=== PATIENT | male | born 1995 | race Caucasian/White ===

== ENCOUNTER 2016-10-15 09:29 | Emergency (ER) | payer MEDICAID, OTHER ==
[~2016-10-15] VITALS: Ht 172.7 cm; Wt 81.0 kg
[2016-10-15 09:40] VITALS: Ht 172.7 cm; Wt 81.0 kg
--- NOTE | 2016-10-15 10:24 | ERD ---
ER Documentation Chief Complaint Date/Time DATE: 10/15/16 Chief Complaint Rectal bleeding HPI The patient is a 21-year-old male who presents the Emergency Department with complaint of rectal bleeding. The patient reports that over the past month he has been experiencing painless rectal bleeding. He notes presence of bright red blood per rectum during bowel movements. His symptoms were initially intermittent, and mild, only noted on the toilet paper, but are now occurring with almost every bowel movement. The patient reports some intermittent associated pruritus ani and "pulsating" lower abdominal discomfort, but denies any pain or discomfort at this time. He denies any hematemesis or coffee- ground emesis. Denies any black tarry stools last melena. Denies any weakness or lightheadedness. Any chest pain, palpitations or shortness of breath. Denies confusion or agitation. Denies fevers or chills. Denies diarrhea. Denies any history of coagulopathy. Denies family history of neoplastic disease. The patient notes that after initial onset of symptoms he assumed that this symptoms were related to his heavy alcohol usage, as he drinks 6-12 beers daily , often accompanied by Lola. However, after attempting to reduce his alcohol use his symptoms persisted, and therefore he decided to present to the ED for evaluation. Denies any anticoagulant use, or any comorbid conditions. ROS All systems reviewed and are negative except as per history of present illness. Medications Home Meds Active Scripts Hydrocortisone Acetate (Anusol-Hc) 25 Mg Supp.rect, 25 MG [place] BID Y for hemorrhoids for 7 Days, SUPP.RECT Prov:SANDRA ORTIZ PA-C 10/15/16 Allergies Allergies: Coded Allergies: No Known Allergy (Unverified , 10/15/16) PMhx/Soc Medical and Surgical Hx: pt denies Medical Hx History of Surgery: Yes (right elbow reconstructive ) Anesthesia Reaction: No Hx Neurological Disorder: No Hx Respiratory Disorders: No Hx Cardiac Disorders: No Hx Psychiatric Problems: No Hx Miscellaneous Medical Probl: No Hx Alcohol Use: Yes Hx Substance Use: Yes (marijuana) Hx Tobacco Use: No Smoking Status: Unknown if ever smoked Physical Exam Vitals Vital Signs Date Time Temp Pulse Resp B/P Pulse Ox O2 Delivery O2 Flow Rate FiO2 10/15/16 11:47 98.2 77 16 115/56 96 Room Air 3/3/17 09:40 98.2 56 16 116/56 96 Physical Exam GENERAL: Well-developed, well-nourished, male, in no acute distress and nontoxic. Well-appearing. HEENT: Head is normocephalic, atraumatic. No scleral pallor or icterus. Pupils equal, round and reactive to light. Extraocular movements intact. Conjunctiva pink. Moist mucous membranes. NECK: Supple. No masses, no tenderness, no lymphadenopathy. Full range of motion. RESPIRATORY: Lungs are clear to auscultation bilaterally. Equal breath sounds. Normal expiratory effort. CARDIOVASCULAR: Regular rate and rhythm. S1 and S2 normal. No tachycardia. No murmurs, rubs, or gallops. Distal pulses are palpable, 2+ bilaterally. Capillary refill is less than 2 seconds. GASTROINTESTINAL: Abdomen is soft, non-tender, and non-distended. No guarding, no rebound tenderness. Normal bowel sounds. No gross peritonitis. BACK: No midline tenderness. RECTAL EXAM: Normal tone, brown stool, heme/guaiac positive. Few hemorrhoids noted. No evidence of thrombosed or strangulated hemorrhoids. EXTREMITIES: No clubbing, cyanosis, or edema. Normal skin perfusion. Moving all extremities. Muscle tone is normal. No focal swelling or erythema. NEUROLOGIC: The patient is alert, awake, and oriented x 3. No focal neurologic deficits. Motor intact. INTEGUMENT: Skin is intact. Warm and dry. No rashes, no petechiae present. Normal turgor. PSYCHIATRIC: Cooperative; appropriate. Result Diagram: 10/15/16 1015 10/15/16 1015 Results 24 hrs Laboratory Tests Test 10/15/16 10:15 Alanine Aminotransferase (ALT/SGPT) 26IU/L Albumin 4.8g/dl Albumin/Globulin Ratio 1.23 Alkaline Phosphatase 68IU/L Anion Gap 18 Aspartate Amino Transf (AST/SGOT) 24IU/L Basophils # 0.010^3/ul Basophils % 0.7% Blood Urea Nitrogen 14mg/dl Calcium Level 10.0mg/dl Carbon Dioxide Level 30mmol/L Chloride Level 103mmol/L Creatinine 1.03mg/dl Direct Bilirubin 0.00mg/dl Eosinophils # 0.110^3/ul Eosinophils % 1.5% Globulin 3.90g/dl Glucose Level 67mg/dl Hematocrit 46.4% Hemoglobin 14.9g/dl Indirect Bilirubin 1.4mg/dl Lymphocytes # 1.710^3/ul Lymphocytes % 36.7% Mean Corpuscular Hemoglobin 26.5pg Mean Corpuscular Hemoglobin Concent 32.1g/dl Mean Corpuscular Volume 82.4fl Mean Platelet Volume 12.6fl Monocytes # 0.310^3/ul Monocytes % 7.1% Neutrophils # 2.410^3/ul Neutrophils % 53.8% Nucleated Red Blood Cells # 0.010^3/ul Nucleated Red Blood Cells % 0.0/100WBC Platelet Count 56769^3/UL Potassium Level 4.9mmol/L Red Blood Count 5.6310^6/ul Red Cell Distribution Width 13.4% Sodium Level 146mmol/L Total Bilirubin 1.4mg/dl Total Protein 8.7g/dl White Blood Count 4.510^3/ul Procedures/MDM This is a 21-year-old male presenting to the Emergency Department for evaluation of bright red-colored rectal bleeding over the past month. On physical examination, several hemorrhoids were noted. No current evidence of thrombosed external hemorrhoids, prolapsed or strangulated internal hemorrhoids. There is no clinical evidence of perirectal abscess, rectal prolapse, anal fissure, perirectal fistula, condyloma acuminata or presence of carcinoma. Laboratory analysis with no significant anemia. After rest, the patient reports no new complaints. Upon review and interpretation of the patient's presentation, I believe his symptoms are most consistent with rectal bleeding likely secondary to hemorrhoids. At this time, the patient is in stable condition and therefore can be discharged home with prescription for Anusol-HC and given strict return precautions for signs of deteriorating or worsening condition. He is advised to follow up with his primary medical provider within 2-3 days for re- evaluation and further management, or return to the ER sooner for any new or worsening symptoms. Additionally, if symptoms persist, he is recommended to follow up with GI specialist for colonoscopy, to rule out other sources of bleeding. I shared my medical decision making and plan with the patient at length and in great detail, and he verbally understands and agrees with the plan for further observation and care as an outpatient. At the time of discharge, all questions were answered. Departure Diagnosis: Primary Impression: Bleeding hemorrhoids Condition: Stable Patient Instructions: Hemorrhoids, Treating Hemorrhoids: Self-Care, Understanding Hemorrhoids Additional Instructions: Follow up with your primary medical provider in 2-3 days for reevaluation and further management. Return to the ED sooner for any new or worsening symptoms. You may need further evaluation by GI specialist if symptoms continue. SANDRA ORTIZ PA-C Oct 15, 2016 10:24
[2016-10-15 10:42] LABS: ADD SCAN DIFF NO
[2016-10-15 10:55] LABS: BASOPHILS % 0.7 % (0.0-2.0); EOSINOPHILS # 0.1 10^3/ul (0.0-0.5); EOSINOPHILS % 1.5 % (0.0-7.0); HEMATOCRIT 46.4 % (42.0-52.0); HEMOGLOBIN 14.9 g/dl (14.0-18.0); LYMPHOCYTES # 1.7 10^3/ul (0.8-2.9); LYMPHOCYTES % 36.7 % (15.0-51.0); MEAN CORPUSCULAR HEMOGLOBIN 26.5 pg (29.0-33.0); MEAN CORPUSCULAR HGB CONC 32.1 g/dl (32.0-37.0); MEAN CORPUSCULAR VOLUME 82.4 fl (82.0-101.0); MEAN PLATELET VOLUME 12.6 fl (7.4-10.4); MONOCYTE # 0.3 10^3/ul (0.3-0.9); MONOCYTES % 7.1 % (0.0-11.0); NEUTROPHIL # 2.4 10^3/ul (1.6-7.5); NEUTROPHILS % 53.8 % (39.0-77.0); PLATELET COUNT 134 10^3/UL (140-415); RED BLOOD COUNT 5.63 10^6/ul (4.70-6.10); RED CELL DISTRIBUTION WIDTH 13.4 % (11.5-14.5); WHITE BLOOD COUNT 4.5 10^3/ul (4.8-10.8)
[2016-10-15 11:14] LABS: ALBUMIN 4.8 g/dl (3.3-4.9); POTASSIUM 4.9 mmol/L (3.5-5.1)
[2016-10-15 11:16] LABS: BILIRUBIN,INDIRECT 1.4 mg/dl (0-1.1); BILIRUBIN,TOTAL 1.4 mg/dl (0.2-1.3); CREATININE 1.03 mg/dl (0.61-1.24)
[2016-10-15 11:17] LABS: ALBUMIN/GLOBULIN RATIO 1.23; TOTAL PROTEIN 8.7 g/dl (6.1-8.1)
[2016-10-15] MEDS ORDERED: HYDR25SU23 PR (11:32)
[2016-10-15 11:47] VITALS: BP 115/56; PULSE 77; RESP 16; TEMP 98.2
== END 2016-10-15 11:59 | disposition home or self-care (01) ==
LOC: FTE 09:29
DX: K64.9 Unspecified hemorrhoids (principal)
CPT/HCPCS: 36415; 80053; 85025; Z7502; 99284

== ENCOUNTER 2016-12-17 13:07 | Emergency (ER) | payer MEDICAID ==
[~2016-12-17] VITALS: Wt 80.0 kg
[~2016-12-17 13:07] MED LIST: HYDR25SU23 PR
--- NOTE | 2016-12-17 14:09 | ERD ---
ER Documentation Chief Complaint Date/Time DATE: 12/17/16 TIME: 14:07 Chief Complaint rectal pain for the past few months. hx of hemmroids . needs pmd HPI Patient is a 21-year-old male with hemorrhoids who presents with a hemorrhoid. The patient says that he has a history of hemorrhoids and was seen in the emergency department a few months ago for the same. He said that he was given a "cream" and that he felt better and the bleeding stopped. He says however he still has an external hemorrhoid and when he wipes with toilet paper he will have a small amount of blood on the toilet paper. He wants to have surgery to remove this hemorrhoid. He does not currently have a primary doctor. He has not seen a surgeon as of yet. Upon review of old medical records this is the patient's fourth visit to the ER for various complaints. ROS All systems reviewed and are negative except as per history of present illness. Medications Home Meds Active Scripts Hydrocortisone Acetate (Anusol-Hc) 25 Mg Supp.rect, 25 MG [place] BID Y for hemorrhoids for 7 Days, SUPP.RECT Prov:SANDRA ORTIZ PA-C 10/15/16 Allergies Allergies: Coded Allergies: No Known Allergy (Unverified , 12/17/16) PMhx/Soc History of Surgery: Yes (right elbow reconstructive ) Anesthesia Reaction: No Hx Neurological Disorder: No Hx Respiratory Disorders: No Hx Cardiac Disorders: No Hx Psychiatric Problems: No Hx Miscellaneous Medical Probl: No Hx Alcohol Use: Yes Hx Substance Use: Yes (marijuana) Hx Tobacco Use: No Smoking Status: Never smoker FmHx Family History: No diabetes Physical Exam Vitals Vital Signs Date Time Temp Pulse Resp B/P Pulse Ox O2 Delivery O2 Flow Rate FiO2 12/17/16 13:13 98.6 85 20 140/59 98 Physical Exam Const: No acute distress Head: Atraumatic Eyes: Normal Conjunctiva ENT: Normal External Ears, Nose and Mouth. Neck: Full range of motion..~ No meningismus. Resp: Clear to auscultation bilaterally Cardio: Regular rate and rhythm, no murmurs Abd: Soft, non tender, non distended. Normal bowel sounds Skin: No petechiae or rashes Back: No midline or flank tenderness Ext: No cyanosis, or edema Neur: Awake and alert Rectal: Small external hemorrhoid without thrombosis or bleeding at this time , no GI bleeding Procedures/MDM Patient is a 21-year-old male with hemorrhoids who presents with an external hemorrhoid. I told him that I will give him referrals to both Dr. Coon and Dr. Parikh from general surgery. He can discuss with them the possibility of hemorrhoidectomy. He does not need any further workup or admission to the hospital at this time. He has no active bleeding at this time. He can return for any worsening symptoms. Departure Diagnosis: Primary Impression: Hemorrhoids Hemorrhoid type: unspecified Qualified Code: K64.9 - Hemorrhoids, unspecified hemorrhoid type Condition: Fair Patient Instructions: Treating Hemorrhoids: Self-Care, Hemorrhoid Surgery Referrals: Maribel COON SAMUEL MD Additional Instructions: Call your primary care doctor TOMORROW for an appointment during the next 1 WEEK.Tell the physician office secretary that you were referred from this facility.See the doctor sooner or return here if your condition worsens before your appointment time. NIVIA NASCIMENTO MD December 17, 2016 14:09
== END 2016-12-17 13:53 | disposition home or self-care (01) ==
LOC: FTE 13:07
DX: K64.9 Unspecified hemorrhoids (principal)
CPT/HCPCS: 99284

== ENCOUNTER → 2017-01-14 | Outpatient (CLI) | payer MEDICAID ==
--- NOTE | 2017-01-14 10:52 | RADRPT ---
PROCEDURE: XR Chest. CLINICAL INDICATION: Preoperative study TECHNIQUE: Single AP view of the chest were obtained COMPARISON: None FINDINGS: The heart and mediastinum are within normal limits. The pulmonary vasculature are unremarkable. The aorta is unremarkable. There is no lung consolidation, pleural effusion or pneumothorax. There i s no acute osseous abnormality. IMPRESSION: No acute disease. RPTAT: AA .Rachel Corbett MD, Date Time Electronically viewed and signed by .Rachel Corbett MD, MD on 01/14/2017 10:52 .J/
--- NOTE | 2017-01-15 00:01 | RADRPT ---
Vent Rate: 58 bpm RR Interval: 0 msec SC Interval: 152 msec QRS Duration: 102 msec QT Interval: 396 msec QTC Interval: 388 msec P-R-T [place]: 86 - 88 - 57 degrees Sinus bradycardia with sinus arrhythmia Otherwise normal ECG Electronically Signed By: Ceferino Santos [id number]
== END | disposition home or self-care (01) ==
LOC: LAB 10:00 → EDSTATUS 01-21 08:00
PROVIDERS: ATTEND Surgery
DX: K64.8 Other hemorrhoids (principal); K64.4 Residual hemorrhoidal skin tags
CPT/HCPCS: 71010; 93005

== ENCOUNTER 2017-08-01 19:43 | Emergency (ER) | payer MEDICAID ==
[~2017-08-01] VITALS: Ht 177.8 cm; Wt 98.6 kg
[2017-08-01 19:45] VITALS: Ht 177.8 cm; Wt 98.6 kg
[2017-08-01] MEDS ORDERED: CLOT30CR24 TOP (21:23)
[2017-08-01] MEDS ORDERED: HC30CR25 TOP (21:23)
--- NOTE | 2017-08-01 21:25 | ERD ---
ER Documentation Chief Complaint Chief Complaint right thigh rash HPI 22-year-old male presents with a right thigh rash for the last 3 weeks. Is slightly itchy. Denies fevers, vomiting, shortness breath or chest pain. ROS All systems reviewed and are negative except as per history of present illness. Medications Home Meds Active Scripts Hydrocortisone* Topical (Hydrocortisone* Topical) 2.5%-28.3 Gm Cream..g., 1 APPLIC TOP BID for 7 Days, #1 TUB Prov:ROBERTO BAY MD 08/01/17 Clotrimazole* (Clotrimazole* AF) 1% - 30 Gm Cream.gm., 1 APPLIC TOP BID for 10 Days, TUB Prov:ROBERTO BAY MD 08/01/17 Hydrocortisone Acetate (Anusol-Hc) 25 Mg Supp.rect, 25 MG NE BID Y for hemorrhoids for 7 Days, SUPP.RECT Prov:SANDRA ORTIZ PA-C 10/15/16 Allergies Allergies: Coded Allergies: No Known Allergy (Unverified , 12/17/16) PMhx/Soc History of Surgery: Yes (right elbow reconstructive ) Anesthesia Reaction: No Hx Neurological Disorder: No Hx Respiratory Disorders: No Hx Cardiac Disorders: No Hx Psychiatric Problems: No Hx Miscellaneous Medical Probl: No Hx Alcohol Use: Yes Hx Substance Use: Yes (marijuana) Hx Tobacco Use: No Smoking Status: Current every day smoker Physical Exam Vitals Vital Signs Date Time Temp Pulse Resp B/P Pulse Ox O2 Delivery O2 Flow Rate FiO2 08/01/17 19:45 97.6 52 20 133/62 97 Physical Exam Const: [], [id number] Head: Atraumatic Eyes: Normal Conjunctiva ENT: Normal External Ears, Nose and Mouth. Neck: Full range of motion..~ No meningismus. Resp: Clear to auscultation bilaterally Cardio: Regular rate and rhythm, no murmurs Abd: Soft, non tender, non distended. Normal bowel sounds Skin: No petechiae or purpura. There is a ring shaped 3 cm lesion on the right eye with some irritation and scaliness. There is no warmth, induration or streaking. Back: No midline or flank tenderness Ext: No cyanosis, or edema Neur: Awake and alert Psych: Normal Mood and Affect Procedures/MDM Patient has signs and symptoms of tinea corporis. We treated with hydrocortisone and Lotrimin, return precautions and primary care follow-up. There is no evidence of purpura, cellulitis, life-threatening rashes .the patient was stable with no new complaints during the ER course. Clinically, there is no current evidence to suggest meningitis, sepsis, acute abdomen, pneumonia, acute coronary syndrome, pulmonary embolism, or any other emergent condition appearing to require further evaluation or hospitalization. The patient should certainly return for any new or worsening symptoms per the aftercare instructions. They should otherwise follow-up with her primary care doctor for reevaluation this week. Departure Diagnosis: Primary Impression: Tinea Condition: Stable Patient Instructions: Ringworm, Skin Additional Instructions: Recheck for new or worsening symptoms or primary care doctor. ROBERTO BAY MD Aug 01, 2017 21:25
[2017-08-01 21:40] VITALS: BP 108/51; PULSE 58; RESP 16; TEMP 97.4
== END 2017-08-01 21:44 | disposition home or self-care (01) ==
LOC: FTE 19:43
DX: B35.4 Tinea corporis (principal); F17.210 Nicotine dependence, cigarettes, uncomplicated
CPT/HCPCS: 99283

== ENCOUNTER 2017-08-22 22:04 | Emergency (ER) | END 2017-08-23 00:14 | disposition home or self-care (01) ==

== ENCOUNTER 2017-11-09 11:28 | Emergency (ER) | END 2017-11-09 12:18 | disposition left against medical advice (07) ==

== ENCOUNTER 2019-02-06 09:51 | Emergency (ER) | payer OTHER ==
[~2019-02-06] VITALS: Ht 172.7 cm; Wt 81.5 kg
[~2019-02-06 09:51] MED LIST changes: +CLOT30CR24 TOP; +HC30CR25 TOP; +HYDR-3980 PO; +IBUP800T48 PO
[2019-02-06 09:55] VITALS: BP 127/75; PULSE 98; RESP 18; Ht 172.7 cm; Wt 81.5 kg
[2019-02-06] MEDS ORDERED: ACETAMINOPHEN 500 MG TAB PO STA (10:41)
[2019-02-06] MEDS ORDERED: IBUPROFEN 800 MG TAB PO ONE (11:00)
[2019-02-06] MEDS ORDERED: ACET500C5 PO (11:37)
[2019-02-06] MEDS ORDERED: AMOX1TAB10 PO (11:37)
[2019-02-06] MEDS ORDERED: IBUP800T48 PO (11:37)
--- NOTE | 2019-02-06 12:27 | ERD ---
ER Documentation Chief Complaint Chief Complaint sore throat and body aches since yesterday HPI 23-year-old male presenting with sore throat and body aches since yesterday. Patient had a fever started yesterday. No cough or runny nose. Has not taken medications for his symptoms. Has mild headache. Denies stiff neck. Denies medical problems. NKDA. Surgical history is elbow surgery. Social history denies ROS All systems reviewed and are negative except as per history of present illness. Medications Home Meds Active Scripts Acetaminophen* (Tylophen*) 500 Mg Capsule, 2 CAP PO Q8H PRN for PAIN AND OR ELEVATED TEMP, #20 CAP Prov:FREEMAN BOSWELL PA-C 02/06/19 Ibuprofen* (Motrin*) 800 Mg Tab, 800 MG PO Q6, #30 TAB Prov:FREEMAN BOSWELL PA-C 02/06/19 Amoxicillin/Potassium Clav (Amox-Clav 875-125 mg Tablet) 875-125 mg Tab, 1 TAB PO BID for 7 Days, #14 TAB Prov:FREEMAN BOSWELL PA-C 02/06/19 Hydrocodone/Acetaminophen ([place] 10-325 Tablet) 1 Each Tablet, 1 TAB PO Q6H PRN for PAIN, #20 TAB Prov:TIM LOMELI S. 08/22/17 Ibuprofen* (Motrin*) 800 Mg Tab, 800 MG PO Q6, #30 TAB Prov:TIM LOMELI S. 08/22/17 Hydrocortisone* Topical (Hydrocortisone* Topical) 2.5%-28.3 Gm Cream..g., 1 APPLIC TOP BID for 7 Days, #1 TUB Prov:ROBERTO BAY MD 08/01/17 Clotrimazole* (Clotrimazole* AF) 1% - 30 Gm Cream.gm., 1 APPLIC TOP BID for 10 Days, TUB Prov:ROBERTO BAY MD 08/01/17 Hydrocortisone Acetate (Anusol-Hc) 25 Mg Supp.rect, 25 MG [place] BID PRN for hemorrhoids for 7 Days, SUPP.RECT Prov:SANDRA ORTIZ PA-C 10/15/16 Allergies Allergies: Coded Allergies: No Known Allergy (Unverified , 02/06/19) PMhx/Soc History of Surgery: Yes (Right elbow) Anesthesia Reaction: No Hx Neurological Disorder: No Hx Respiratory Disorders: No Hx Cardiac Disorders: No Hx Psychiatric Problems: No Hx Miscellaneous Medical Probl: No Hx Alcohol Use: Yes Hx Substance Use: Yes (THC) Hx Tobacco Use: No FmHx Family History: No diabetes, No coronary disease, No other Physical Exam Vitals Vital Signs Date Temp Pulse Resp B/P (MAP) Pulse Ox O2 O2 Flow FiO2 Time Delivery Rate 02/06/19 100.8 11:50 02/06/19 101.8 10:51 02/06/19 101.8 10:51 02/06/19 101.6 98 18 127/75 99 09:55 (92) Physical Exam GENERAL: The patient is well-appearing, well-nourished, in no acute distress HEENT: Atraumatic. Conjunctivae are pink. Pupils equal, round, and reactive to light. There is no scleral icterus. Tympanic membranes clear bilaterally. Oropharynx erythematous with exudate noted to bilateral tonsils. Uvula midline NECK: C-spine is soft and supple. There is no meningismus. There is no cervical lymphadenopathy. CHEST: Clear to auscultation bilaterally. There are no rales, wheezes or rhonchi. HEART: Regular rate and rhythm. No murmurs, clicks, rubs or gallops. Results 24 hrs Laboratory Tests Test 02/06/19 10:50 Monoscreen Positive Current Medications Medications Dose Sig/Ari Start Time Status Last (Trade) Ordered Route PRN Stop Time Admin Dose Reason Admin Ibuprofen 800 mg ONCE ONCE 02/06/19 DC 02/06/19 (Motrin) PO 11:00 10:51 02/06/19 11:01 1,000 mg ONCE STAT 02/06/19 DC 02/06/19 Acetaminophen PO 10:41 10:51 (Tylenol 02/06/19 10:44 Tab) Procedures/MDM ER course: Strep positive. Ibuprofen and Tylenol given ED. MDM: 23-year-old male presenting with sore throat. I have low suspicion for meningitis or sepsis. I have low suspicion for pneumonia. Patient is discharged with antibiotics for strep throat. Patient is told symptoms change or worsen to return immediately to the ER. All questions answered at discharge Departure Diagnosis: Primary Impression: Strep throat Condition: Stable Patient Instructions: Strep Throat Referrals: [facility] YOU HAVE RECEIVED A MEDICAL SCREENING EXAM AND THE RESULTS INDICATE THAT YOU DO NOT HAVE A CONDITION THAT REQUIRES URGENT TREATMENT IN THE EMERGENCY DEPARTMENT. FURTHER EVALUATION AND TREATMENT OF YOUR CONDITION CAN WAIT UNTIL YOU ARE SEEN IN YOUR DOCTORS OFFICE WITHIN THE NEXT 1-2 DAYS. IT IS YOUR RESPONSIBILITY TO MAKE AN APPOINTMENT FOR FOLOW-UP CARE. IF YOU HAVE A PRIMARY DOCTOR --you should call your primary doctor and schedule an appointment IF YOU DO NOT HAVE A PRIMARY DOCTOR YOU CAN CALL OUR PHYSICIAN REFERRAL HOTLINE AT IF YOU CAN NOT AFFORD TO SEE A PHYSICIAN YOU CAN CHOSE FROM THE FOLLOWING [facility] [address] [facility]. [facility] [address] [facility]. [facility] [address] [facility] [facility] [address] [facility]. [facility] [address] [facility]. [facility] [address] Additional Instructions: FOLLOW UP WITH YOUR PRIMARY CARE PHYSICIAN TOMORROW.Return to this facility if you are not improving as expected. FREEMAN BOSWELL PA-C Feb 06, 2019 12:27
== END 2019-02-06 11:51 | disposition home or self-care (01) ==
LOC: FTE 09:51
DX: J02.0 Streptococcal pharyngitis (principal)
CPT/HCPCS: 36415; 86308; 87880; Z7502; Z7610; 99283

== ENCOUNTER 2019-05-02 12:05 | Emergency (ER) | payer OTHER ==
[~2019-05-02] VITALS: Ht 154.9 cm; Wt 63.0 kg
[~2019-05-02 12:05] MED LIST changes: +ACET500C5 PO; +AMOX1TAB10 PO; +DOCU-144 PO
[2019-05-02 12:07] VITALS: BP 127/69; PULSE 79; RESP 18; Ht 154.9 cm; Wt 63.0 kg
== END 2019-05-02 13:58 | disposition home or self-care (01) ==
LOC: FTE 12:05
DX: K40.91 Unilateral inguinal hernia, without obstruction or gangrene, recurrent (principal)
CPT/HCPCS: 36415; 74018; 80053; 83690; 85025; Z7502